=== PATIENT | male | born 1970 | race Caucasian/White ===

== ENCOUNTER 2019-03-06 16:51 | Emergency (ER) | payer BC, OTHER ==
[~2019-03-06] VITALS: Ht 175.3 cm; Wt 72.6 kg
[2019-03-06 17:50] VITALS: BP 142/80
[2019-03-06] MEDS ORDERED: ONDANSETRON ODT 4 MG TAB.RAPDIS. PO STA (18:30)
[2019-03-06] MEDS ORDERED: DEXAMETHASONE 4 MG TABLET PO STA (18:30)
[2019-03-06] MEDS ORDERED: OSEL75CA PO (18:39)
[2019-03-06] MEDS ORDERED: ONDA4TAB12 PO (18:39)
--- NOTE | 2019-03-06 18:40 | PHYS DOC ---
Adult General Chief Complaint Chief Complaint: FLU SYMPTOM HPI HPI Patient is a 48 year old male who presents with body aches, chills, headache, nausea, runny nose, cough, sore throat this been ongoing since Wednesday morning. Patient states that he's been taking ibuprofen every 6 hours for fever relief. D enies any other symptoms. Review of Systems Review of Systems Constitutional: Reports fever or chills. Reports body aches. Eyes: Denies change in visual acuity, redness, or eye pain [] HENT: Reports nasal congestion, runny nose, and congestion.] Respiratory: Reports cough. Cardiovascular: No additional information not addressed in HPI [] GI: Reports nausea. Denies abdominal pain, vomiting, bloody stools or diarrhea [] : Denies dysuria or hematuria [] Musculoskeletal: Denies back pain or joint pain [] Integument: Denies rash or skin lesions [] Neurologic: Denies headache, focal weakness or sensory changes [] Endocrine: Denies polyuria or polydipsia [] Complete systems were reviewed and found to be within normal limits, except as documented in this note. Current Medications Current Medications Current Medications Medications (Trade) Dose Ordered Sig/[place] Start Time Stop Time Status Last Admin Dose Admin Dexamethasone (Decadron) 10 mg 1X STAT 03/06/19 18:30 03/06/19 18:31 UNV Physical Exam Physical Exam Constitutional: Well developed, well nourished, no acute distress, non-toxic appearance. [] HENT: Normocephalic, atraumatic, bilateral external ears normal, oropharynx moist, no oral exudates, nose normal. [] Eyes: PERRLA, EOMI, conjunctiva normal, no discharge. [] Neck: Normal range of motion, no tenderness, supple, no stridor. [] Cardiovascular:Heart rate regular rhythm, no murmur [] Lungs & Thorax: Bilateral breath sounds clear to auscultation [] Skin: Warm, dry, no erythema, no rash. [] Neurologic: Alert and oriented X 3, normal motor function, normal sensory function, no focal deficits noted. [] Psychologic: Affect normal, judgement normal, mood normal. [] EKG EKG [] Radiology/Procedures Radiology/Procedures [] Course & Med Decision Making Course & Med Decision Making Pertinent Labs and Imaging studies reviewed. (See chart for details) The patient clinically appears to have the flu. Will give Decadron, Nausea medication in ER. Discussed with patient the importance of plenty of fluids and rest. Will prescribe Zofran, Tamiflu, and discussed the importance of taking antipyretics for fever. Dragon Disclaimer Dragon Disclaimer This electronic medical record was generated, in whole or in part, using a voice recognition dictation system. Departure Departure Impression: Primary Impression: Influenza Disposition: HOME, SELF-CARE Condition: STABLE Referrals: JEFFERSON GREWAL MD (PCP) Patient Instructions: Fever, Adult, Influenza A (H1N1) Additional Instructions: Thank you for visiting [facility]. We appreciate you trusting us with your care. If any additional problems come up don't hesitate to return to visit us. Please follow up with your primary care provider so they can plan additional care if needed and know about the problem that you had. If symptoms worsen come back to the Emergency Department. Any concerning symptoms that start such as chest pain, shortness of air, weakness or numbness on one side of the body, running high fevers or any other concerning symptoms return to the ER. Please drink plenty fluids, if unable to keep fluids down please return to the ER. Please make sure to get plenty of rest. Please take Zyrtec and Mucinex per label instructions over the counter. Scripts Oseltamivir Phosphate (TAMIFLU) 75 Mg Capsule 75 MG PO BID for FLU for 5 Days, #10 TAB 0 Refills Prov: AJAY MAURICE APRN 03/06/19 Ondansetron (ONDANSETRON ODT) 4 Mg Tab.rapdis 1 TAB PO PRN Q6-8HRS PRN for NAUSEA, #16 TAB Prov: AJAY MAURICE APRN 03/06/19 AJAY MAURICE APRN Mar 06, 2019 18:40
== END 2019-03-06 19:07 | disposition home or self-care (01) ==
LOC: ER 16:51
DX: J11.1 Influenza due to unidentified influenza virus with other respiratory manifestations (principal); R09.89 Other specified symptoms and signs involving the circulatory and respiratory systems; R50.9 Fever, unspecified; R51 Headache
CPT/HCPCS: 99283; J8540; Q0162